=== PATIENT | female | born 1985 | race Caucasian/White ===

== ENCOUNTER 2016-11-09 00:16 | Emergency (ER) | payer SELFPAY ==
[~2016-11-09] VITALS: Ht 154.9 cm; Wt 103.0 kg
[2016-11-09 00:22] VITALS: Ht 154.9 cm; Wt 103.0 kg
--- NOTE | 2016-11-09 00:47 | ERD ---
ER Documentation Chief Complaint Date/Time DATE: 11/09/16 TIME: 00:43 Chief Complaint left big toe pain,took iburpofen at 1900 HPI Patient is a 31-year-old female presents to the emergency room for concerns of left big toe pain 5 hours. Patient states she was sweeping the floor when the barstool fell and landed on her left big toe. Patient reports bruising and swelling to her left big toe. Pain is localized to the left big toe. Patient denies any radiation of pain to her foot, ankle or leg. She reports taking ibuprofen 800 mg at 7 PM. Patient denies any previous injuries to the affected extremity. Patient is able to ambulate however she reports pain. She denies any fevers, chills, nausea, vomiting, LOC. ROS All systems reviewed and are negative except as per history of present illness. Medications Home Meds Active Scripts Hydrocodone/Acetaminophen ([place] 5-325 Tablet) 1 Each Tablet, 1 TAB PO Q6H Y for PAIN, #7 TAB Prov:FATOUMATA HUNTER PA-C 11/09/16 Ibuprofen* (Motrin*) 600 Mg Tab, 600 MG PO Q6, #30 TAB Prov:FATOUMATA HUNTER PA-C 11/09/16 Allergies Allergies: Coded Allergies: No Known Allergy (Unverified , 11/09/16) PMhx/Soc Medical and Surgical Hx: pt denies Medical Hx, pt denies Surgical Hx Hx Alcohol Use: Yes Hx Substance Use: No Hx Tobacco Use: No Smoking Status: Never smoker Physical Exam Vitals Vital Signs Date Time Temp Pulse Resp B/P Pulse Ox O2 Delivery O2 Flow Rate FiO2 11/09/16 00:22 98.0 88 18 145/88 99 Physical Exam GENERAL: Well-developed, well-nourished female. Appears in no acute distress. HEAD: Normocephalic, atraumatic. EYES: Pupils are equally reactive bilaterally. EOMs grossly intact. No conjunctival erythema. ENT: Moist mucous membranes. No uvula deviation. No kissing tonsils. NECK: Supple. No meningismus. Normal range of motion of the neck. LUNG: Clear to auscultation bilaterally. No rhonchi, wheezing, rales or coarse breath sounds. HEART: Regular rate and rhythm. No murmurs, rubs or gallops. EXTREMITIES: Equal pulses bilaterally. No peripheral clubbing, cyanosis or edema. No unilateral leg swelling. NEUROLOGIC: Alert and oriented. Moving all four extremities without any difficulty. Normal speech SKIN: Normal color. Warm and dry. No rashes or lesions. LEFT FOOT: No obvious deformity. Swelling and ecchymosis noted to the ITP joint of the eftt big toe. Skin intact. Decreased range of motion of the big toe secondary to swelling and pain. Normal range of motion of digits 2 through 5. Tender to palpation of the leftt big toe. Nontender palpation of the midfoot, fifth metatarsal, ankle or tibia-fibula. No joint line tenderness. (-) Anterior drawer test. (-) Porsche test. No valgus/varus instability. Sensation intact to light touch. Neurovascularly intact. (Able to plantarflex, dorsiflex, aracelis foot, invert foot, raise big toe.) 2+ DP and DT pulses. Results 24 hrs Current Medications Medications (Trade) Dose Ordered Sig/Kamala Route PRN Reason Start Time Stop Time Status Last Admin Dose Admin Acetaminophen/ Hydrocodone Bitart ([place] (5/325)) 1 tab ONCE ONCE PO 11/09/16 01:00 11/09/16 01:00 DC Procedures/MDM ED COURSE: The patient was stable throughout ED course. I kept the patient and/or family informed of laboratory and diagnostic imaging results throughout the ED course. DIAGNOSTIC IMAGING: Read by radiologist. DIAGNOSTIC IMAGING REPORT Patient: DAYNE MERCER : 1985 Age: 31 Sex: F MR #: [id number] DOS: 11/09/16 0056 Ordering MD: FATOUMATA HUNTER PA-C Location: [facility] Room/Bed: PROCEDURE: XR Toe. CLINICAL INDICATION: Pain. Trauma. TECHNIQUE: Three views of the left great toe. COMPARISON: None available. FINDINGS: There is a an acute fracture of the distal phalanx of the great toe. There is a mildly displaced fracture of the tuft and there is a minimally displaced intra -articular fracture of the medial base. There is overlying soft tissue swelling. Normal alignment.. IMPRESSION: 1. Acute fracture distal phalanx of the great toe.. RPTAT: HCTS Physician Maribell Date Time Electronically viewed and signed by Physician Maribell on 11/09/2016 01: 21 CS/ CC: FATOUMATA HUNTER PA-C PROCEDURES: SPLINT APPLICATION: The patient was verbally consented at bedside prior to splint application. Patient was explained the risks, benefits and alternatives to this procedure. The patient was neurovascularly intact prior to and status post application of the splint. The patient tolerated the procedure well with no complications. Splint type: ortho shoe and callie tape Extremity: left foot Indication: Acute fracture distal phalanx of the great toe.. MEDICATIONS GIVEN: [place] Patient tolerated medication well with no adverse reactions. Patient reported improvement in pain. MEDICAL DECISION MAKING: This is a 31-year-old female presents with right big toe pain after a barstool fell on her left big toe earlier today. Vital signs were reviewed. Patient was afebrile. Xrays showed acute fracture distal phalanx of the great toe.. Patient was placed in an orthopedic shoe and 1st and 2nd digits were callie taped. Given these findings, the patient's presentation is most consistent with fracture distal phalanx of the great toe. I have a much lower clinical concern for ankle dislocation, tibia fracture, fibula fracture, ankle fracture, tarsal bone fracture, metatarsal fracture, lisfranc injury, gout, septic joint, reactive arthritis, psoriatic arthritis, DVT, compartment syndrome, plantar fasciitis. At this time, unable to rule out any tendon and ligament injuries. PRESCRIPTIONS: Ibuprofen, [place] DISCHARGE: At this time, patient is stable for discharge and outpatient management. Patient advised to remain in ortho shoe until cleared by clinic specialist. Work note provided. I have instructed the patient to follow-up with his/her primary care physician in 1-2 days. I have discussed with the patient the possibility of needing to see an clinic specialist for further workup and imaging if the pain persists. I have instructed the patient to promptly return to the ER for any new or worsening symptoms including increased pain, swelling, redness, warmth or fever. The patient and/or family expressed understanding of and agreement with this plan. All questions were answered. Home care instructions were provided. Patients blood pressure was elevated (>120/80) but appears stable without evidence of hypertensive emergency, hypertensive urgency or end-organ failure. I had discussion with the patient about the risks of hypertension. I have advised the patient to follow up with his/her primary care physician for outpatient monitoring and treatment for hypertension in 2-3 days. I have instructed the patient to return to the ER for any new or worsening symptoms including chest pain, shortness of breath, headache, blurred vision, confusion, nausea, vomiting or LOC. Disclaimer: Inadvertent spelling and grammatical errors are likely due to EHR/ dictation software use and do not reflect on the overall quality of patient care. Also, please note that the electronic time recorded on this note does not necessarily reflect the actual time of the patient encounter. Departure Diagnosis: Primary Impression: Injury of toe Encounter type: initial encounter Laterality: right Qualified Code: S99.921A - Injury of toe, right, initial encounter Additional Impression: Toe fracture, left Encounter type: initial encounter Toe: great toe Fracture type: closed Phalanx: distal Fracture alignment: nondisplaced Qualified Code: S92.425A - Closed nondisplaced fracture of distal phalanx of left great toe, initial encounter Patient Instructions: Sprain Toe Referrals: [facility] YOU HAVE RECEIVED A MEDICAL SCREENING EXAM AND THE RESULTS INDICATE THAT YOU DO NOT HAVE A CONDITION THAT REQUIRES URGENT TREATMENT IN THE EMERGENCY DEPARTMENT. FURTHER EVALUATION AND TREATMENT OF YOUR CONDITION CAN WAIT UNTIL YOU ARE SEEN IN YOUR DOCTORS OFFICE WITHIN THE NEXT 1-2 DAYS. IT IS YOUR RESPONSIBILITY TO MAKE AN APPOINTMENT FOR FOLOW-UP CARE. IF YOU HAVE A PRIMARY DOCTOR --you should call your primary doctor and schedule an appointment IF YOU DO NOT HAVE A PRIMARY DOCTOR YOU CAN CALL OUR PHYSICIAN REFERRAL HOTLINE AT IF YOU CAN NOT AFFORD TO SEE A PHYSICIAN YOU CAN CHOSE FROM THE FOLLOWING [facility]ICS [facility] [address] [facility] [address] [facility]. [facility] [address] [facility] [address] [facility] [address] [facility]. [facility] [address] [facility]. [facility] YOU HAVE RECEIVED A MEDICAL SCREENING EXAM AND THE RESULTS INDICATE THAT YOU DO NOT HAVE A CONDITION THAT REQUIRES URGENT TREATMENT IN THE EMERGENCY DEPARTMENT. FURTHER EVALUATION AND TREATMENT OF YOUR CONDITION CAN WAIT UNTIL YOU ARE SEEN IN YOUR DOCTORS OFFICE WITHIN THE NEXT 1-2 DAYS. IT IS YOUR RESPONSIBILITY TO MAKE AN APPOINTMENT FOR FOLOW-UP CARE. IF YOU HAVE A PRIMARY DOCTOR --you should call your primary doctor and schedule and appointment IF YOU DO NOT HAVE A PRIMARY DOCTOR YOU CAN CALL OUR PHYSICIAN REFERRAL HOTLINE AT . IF YOU CAN NOT AFFORD TO SEE A PHYSICIAN YOU CAN CHOSE FROM THE FOLLOWING [facility] INSTITUTIONS: [facility] [address] [place] [address] [facility] [address] [place] [address] [facility] [address] [place] [address] [facility] 7 a.m.- 11 p.m. Every Day of the Week NO APPOINTMENT OR AUTHORIZATION NEEDED [facility] Hours: Mon-Fri 9:00 AM - 5:00 PM Additional Instructions: Call your primary care doctor TOMORROW for an appointment during the next 1-2 days.See the doctor sooner or return here if your condition worsens before your appointment time. FATOUMATA HUNTER PA-C Nov 09, 2016 00:47 FATOUMATA HUNTER PA-C Nov 09, 2016 00:47
[2016-11-09] MEDS ORDERED: HYDROCODONE/APAP (5/325) TAB PO ONE (01:00)
--- NOTE | 2016-11-09 01:22 | RADRPT ---
PROCEDURE: XR Toe. CLINICAL INDICATION: Pain. Trauma. TECHNIQUE: Three views of the left great toe. COMPARISON: None available. FINDINGS: There is a an acute fracture of the distal phalanx of the great toe. There is a mildly displaced fr acture of the tuft and there is a minimally displaced intra-articular fracture of the medial base. There is overlying soft tissue swelling. Normal alignment.. IMPRESSION: 1. Acute fracture distal phalanx of the great toe.. RPTAT: HCTS Physician Maribell Date Time Electronically viewed and signed by Ralf Pendleton Physician on 11/09/2016 01:21 CS/
[2016-11-09] MEDS ORDERED: HYDR-906 PO (01:40)
[2016-11-09] MEDS ORDERED: IBUP-1542 PO (01:40)
== END 2016-11-09 02:00 | disposition home or self-care (01) ==
LOC: FTE 00:16
DX: S92.425A Nondisplaced fracture of distal phalanx of left great toe, initial encounter for closed fracture (principal); W18.39XA Other fall on same level, initial encounter; Y92.9 Unspecified place or not applicable
CPT/HCPCS: 73660